=== PATIENT | male | born 1955 | race Caucasian/White ===

== ENCOUNTER 2016-07-08 09:59 | Emergency (ER) ==
[2016-07-08] MEDS ORDERED: AMOXIL PO ONE (10:50)
[2016-07-08] MEDS ORDERED: DECADRON IM ONE (10:50)
[2016-07-08] MEDS ORDERED: ZYRTEC PO ONE (10:51)
--- NOTE | 2016-07-08 10:57 | PROVIDER DOCUMENTATION ---
HPI-General Adult - General Source: patient - History of Present Illness -Gen Adult Nature of Presenting Problems: Pt is 60 y/o M presents to the ED with nasal congestion and cough. Pt states symptoms have been present for one week. Pt denies F. Pt states cough. Location of Pain/Injury: reports: none Pain Radiation: reports: no radiation Quality of Pain: reports: none Onset/Duration: reports: 1 week ago Timing: reports: still present Context/Activities at Onset: reports: light activity Modifying Factors: improves with: nothing Associated Symptoms: reports: cough, sinus congestion/drainage (congestion) Similar Symptoms Previously?: Yes Recently seen or treated by another doctor?: No <Elma Rojo - Last Filed: 07/08/16 10:51> <Saleem Oconnor - Last Filed: 07/08/16 11:10> - General Chief Complaint: Cold Symptoms Stated Complaint: COLD SX Time Seen by Provider: 07/08/16 10:44 Allergies/Adverse Reactions: Patient Allergies Allergy/AdvReac Type Severity Reaction Status Date / Time No Known Allergies Allergy Verified 11/25/14 11:11 Home Medications: Home Medication List Medication Instructions Recorded Confirmed Last Taken Type Cyclobenzaprine [Flexeril] 10 mg PO TID #20 tablet 11/25/14 Unknown Rx Gabapentin [Neurontin] 600 mg PO BID 11/25/14 11/25/14 11/25/14 09:00 History Ibuprofen [Motrin] 800 mg PO Q8H PRN PRN #20 tablet 11/25/14 Unknown Rx Lansoprazole [Prevacid 24Hr] 15 mg PO DAILY 11/25/14 11/25/14 11/24/14 09:00 History Omeprazole [Prilosec] 20 mg PO DAILY@0700 #20 capsule 11/25/14 Unknown Rx Pentoxifylline [Pentoxil] 400 mg PO BID 11/25/14 11/25/14 11/24/14 21:00 History ROSUVAstatin [Crestor] 20 mg PO DAILY 11/25/14 11/25/14 11/24/14 09:00 History Amoxicillin 500 mg PO BID #14 tablet 07/08/16 Unknown Rx Cetirizine [Zyrtec] 10 mg PO DAILY #20 tablet 07/08/16 Unknown Rx Methylprednisolone [Medrol Dosepak] 4 mg PO DIRECTED #1 package 07/08/16 Unknown Rx Review of Systems - Adult - REVIEW OF SYSTEMS - ADULT Constitutional: reports: no symptoms reported Eyes: reports: no symptoms reported Ears, Nose, Mouth & Throat: reports: sinus problem (congestion). denies: ear pain, throat pain Cardiovascular: reports: irregular heart rate (duane). denies: chest pain, heart murmur Respiratory: reports: cough. denies: shortness of breath, wheezing Gastrointestinal: reports: no symptoms reported Genitourinary: reports: no symptoms reported Musculoskeletal: reports: no symptoms reported Integumentary: reports: no symptoms reported Neurological: reports: no symptoms reported Psychiatric: reports: no symptoms reported Endocrine: reports: no symptoms reported Hematologic/Lymphatic: reports: no symptoms reported Allergic/Immunologic: reports: no symptoms reported All Other Systems: Reviewed and Negative <Elma Rojo - Last Filed: 07/08/16 10:51> Past History - Adult - PAST MEDICAL HISTORY-ADULT Review of Records: reports: Nursing Assessment Review, Medications Reviewed, Social history reviewed & non-contributory. Major Childhood Illnesses: reports: denies history Cardiovascular: reports: HTN, hyperlipidemia Respiratory: reports: COPD Gastrointestinal: reports: denies history Obstetrical/Gynecological: reports: denies history Genitourinary: reports: denies history Musculoskeletal: reports: arthritis, chronic pain Neurological: reports: denies history Endocrine/Immune: reports: denies history Other Conditions: reports: denies history - PRIOR SURGERIES/PROCEDURES Surgical/Procedure History: reports: reviewed, not pertinent - IMMUNIZATION STATUS Childhood Immunizations: See Nurse Assessment Flu Vaccine: See Nurse Assessment - FAMILY HISTORY Family History: reviewed, not pertinent - SOCIAL HISTORY Smoking: quit less than 1 year, cigarettes Substance Use: denies Living Situation: family <Elma Rojo - Last Filed: 07/08/16 10:51> Physical Exam-General - PHYSICAL EXAM-ADULT Initial Vital Signs Reviewed: Yes - CONSTITUTIONAL General Appearance: appears well, alert, no apparent distress - EYES Eyes: PERRL/EOMI, pink conjunctivae, fundi clear, no AV nicking - HEAD, EARS, NOSE, MOUTH & THROAT HENMT: normocephalic/atraumatic, moist mucous membranes, normal ENT inspection, TMs normal, pharyngeal erythema - NECK Neck: non-tender, full range of motion, supple, normal inspection - RESPIRATORY Respiratory: chest non-tender, lungs clear, normal breath sounds, no pleuratic chest pain, no respiratory distress, no accessory muscle use - CARDIOVASCULAR Cardiovascular: normal peripheral pulses, no edema, no gallop, no JVD, no murmur , bradycardia - GASTROINTESTINAL (ABDOMEN) Abdominal Exam: normal bowel sounds, non tender, soft, no organomegaly, no pulsatile mass - LYMPHATIC Lymphatic: no adenopathy - MUSCULOSKELETAL Back Exam: normal inspection, no CVA tenderness, no vertebral tenderness Extremity: normal range of motion, non-tender, normal gait, normal inspection, no pedal edema, no calf tenderness, normal capillary refill - SKIN Integumentary: normal color, normal turgor, warm/dry - NEUROLOGIC Neurologic: grossly normal - PSYCHIATRIC Psych/Mental Status: normal mood/affect, oriented x 3 <Elma Rojo - Last Filed: 07/08/16 10:51> Progress - PLAN OF CARE/RESULTS Progress/Plan/Lab Results: Orders Category Date Time Status Amoxicillin [Amoxil] Med 07/08/16 10:50 Discontinued 500 mg PO NOW ONE Cetirizine [Zyrtec] Med 07/08/16 10:51 Discontinued 10 mg PO NOW ONE Dexamethasone [Decadron] Med 07/08/16 10:50 Discontinued 10 mg IM NOW ONE Vital Signs - 24 hr 07/08/16 10:11 Temperature 97.8 F Pulse Rate 54 L Respiratory 20 Rate Blood Pressure 165/88 O2 Sat by Pulse 98 Oximetry <Elma Rojo - Last Filed: 07/08/16 10:51> - PLAN OF CARE/RESULTS Progress/Plan/Lab Results: Discussed results and plan of care with patient. Patient agrees with plan and verbalizes understanding. Vital Signs Temp Pulse Resp BP Pulse Ox 07/08/16 10:11 97.8 F 54 L 20 165/88 98 No Known Allergies Allergy (Verified 11/25/14 11:11) Cyclobenzaprine [Flexeril] 10 mg PO TID #20 tablet 11/25/14 Gabapentin [Neurontin] 600 mg PO BID 11/25/14 Ibuprofen [Motrin] 800 mg PO Q8H PRN PRN #20 tablet 11/25/14 Lansoprazole [Prevacid 24Hr] 15 mg PO DAILY 11/25/14 Omeprazole [Prilosec] 20 mg PO DAILY@0700 #20 capsule 11/25/14 Pentoxifylline [Pentoxil] 400 mg PO BID 11/25/14 ROSUVAstatin [Crestor] 20 mg PO DAILY 11/25/14 Orders Category Date Time Status Amoxicillin [Amoxil] Med 07/08/16 10:50 Discontinued 500 mg PO NOW ONE Cetirizine [Zyrtec] Med 07/08/16 10:51 Discontinued 10 mg PO NOW ONE Dexamethasone [Decadron] Med 07/08/16 10:50 Discontinued 10 mg IM NOW ONE <Saleem Oconnor - Last Filed: 07/08/16 11:10> Departure <Elma Rojo - Last Filed: 07/08/16 10:51> - Departure Time of Disposition Order: 11:09 Certified Medical Emergency: Emergent <Saleem Oconnor - Last Filed: 07/08/16 11:10> - Departure DIAGNOSIS: Sinusitis Qualifiers: Sinusitis location: frontal Chronicity: acute Recurrence: not specified as recurrent Qualified Code(s): J01.10 - Acute frontal sinusitis, unspecified Disposition: HOME 01 Condition: Stable Additional Instructions: Follow up with primary care physician Take medications as directed Return to ED for any concerns or worsening of symptoms ED Follow Up Instructions: You have been treated by a care provider in the Emergency Department. These instructions are being provided to you so you can have an understanding of how to care for yourself upon discharge. Upon discharge from the Emergency Department, you are responsible for making arrangements for follow-up care by a physician of your choice. Take all prescribed medications as directed. Return to the Emergency Department immediately for any new or worsening symptoms. You may call the Physician Referral phone number at [phone] to obtain a list of Physicians who are taking new patients. Prescriptions: Amoxicillin 500 mg PO BID #14 tablet Methylprednisolone [Medrol Dosepak] 4 mg PO DIRECTED #1 package Cetirizine [Zyrtec] 10 mg PO DAILY #20 tablet Attestation - Scribe Verification/Attestation Scribe:: Elma Rojo Acting as Scribe for:: Saleem Oconnor Scribe documention review:: This chart was documented by a scribe and accurately reflects the service the provider performed and the decisions made by the provider. <Elma Rojo - Last Filed: 07/08/16 10:51> - Physician/ KARIN Attestation Patient care was provided by Advanced Practice Provider:: Yes Advanced Practice Provider:: Saleem Oconnor Advanced Practice Provider documentation review:: The Mid-level provider documentation, treatment plan and medical decision making was reviewed by the physician who agrees with all treatment and medical decision making by the MLP. <Saleem Oconnor - Last Filed: 07/08/16 11:10> Physician Attestation
[2016-07-08 11:28] VITALS: BP 158/89
== END 2016-07-08 11:32 | disposition home or self-care (01) ==
LOC: P.ED 09:59
DX: J01.10 Acute frontal sinusitis, unspecified (principal); R09.81 Nasal congestion; R00.1 Bradycardia, unspecified; R05 Cough; I10 Essential (primary) hypertension; E78.5 Hyperlipidemia, unspecified; J44.9 Chronic obstructive pulmonary disease, unspecified; M19.90 Unspecified osteoarthritis, unspecified site; Z79.899 Other long term (current) drug therapy; G89.29 Other chronic pain; Z87.891 Personal history of nicotine dependence
CPT/HCPCS: 96372